=== PATIENT | male | born 1990 | race Caucasian/White ===

== ENCOUNTER 2018-02-25 20:57 | Emergency (ER) | payer OTHER ==
[2018-02-25] MEDS ORDERED: ONDANSETRON *ODT* 4 MG TABLET SL ONE (21:15)
[2018-02-25] MEDS ORDERED: morphine CARPU-JECT 4 MG/1 ML DISP.SYRIN IVPUSH ONE (21:15)
[2018-02-25] MEDS ORDERED: morphine SULFATE 4 MG/ML VIAL ONE (21:18)
[2018-02-25 21:19] VITALS: BP 140/100; PULSE 79; BMI 29.5
[2018-02-25] MEDS ORDERED: ONDANSETRON 4 MG/2 ML VIAL ONE (21:19)
--- NOTE | 2018-02-25 21:51 | PDOC ---
Attending Attestation - Resident Resident Name: Lisa Rivera - ED Attending Attestation I have performed the following: I have examined & evaluated the patient, The case was reviewed & discussed with the resident, I agree w/resident's findings & plan, Exceptions are as noted - HPI HPI: 02/25/18 21:50 27 M with no PMH presents to ED with R shoulder pain after falling. Pt states he tripped over a rock and fell forward onto his R arm. Pt denies headstrike/ LOC. Now complains of pain in R shoulder and difficulty ranging his RUE. Denies headache, denies neck pain, denies back pain, denies pain in LUE or BLE. - Physicial Exam PE: 02/25/18 21:51 "GENERAL: Awake, alert, and fully oriented, in no acute distress. HEAD: No signs of trauma EYES: PERRLA, EOMI, sclera anicteric, conjunctiva clear ENT: Auricles normal inspection, hearing grossly normal, nares patent, oropharynx clear without exudates. Moist mucosa NECK: Nontender, no stepoffs, Normal ROM, supple, no lymphadenopathy, JVD, or masses LUNGS: Breath sounds equal, clear to auscultation bilaterally. No wheezes, and no crackles HEART: Regular rate and rhythm, normal S1 and S2, no murmurs, rubs or gallops ABDOMEN: Soft, nontender, normoactive bowel sounds. No guarding, no rebound. No masses EXTREMITIES: + RUE with flattening of deltoid, ROM limited 2/2 pain, neurovascularly intact distally. NEUROLOGICAL: Cranial nerves II through XII intact. 5/5 strength and sensation in all extremities, Normal speech, normal gait, normal cerebellar function SKIN: Warm, Dry, normal turgor, no rashes or lesions noted. " - Medical Decision Making 02/25/18 21:51 27 M with R shoulder deformity after falling. Likely dislocation. No other injury. - XR R shoulder 02/25/18 22:14 XR shows anterior dislocation Shoulder reduced with external rotation and scapular manipulation Repeat XR shows successful reduction Pt placed in sling. Will DC with ortho f/u. Pt is well appearing, with normal vitals. Clinically stable for DC at this time. I discussed the physical exam findings, ancillary test results and final diagnoses with the patient. I answered all of the patient's questions. The patient was satisfied with the care received and felt comfortable with the discharge plan and treatment plan. The patient agrees to follow up with the primary care physician within 24-72 hours. Procedures - Joint Reduction Right Joint Reduction Site: right: Shoulder Pre-Procedure NV Exam: normal Conscious Sedation: No Procedure: Scapular Manipulation Post-Procedure NV Exam: normal Complications: No Post Joint Reduction Film: joint reduced Immobilized: Yes (Sling)
--- NOTE | 2018-02-25 22:17 | PDOC ---
History of Present Illness - General Chief Complaint: Injury Stated Complaint: SHOULDER INJURY Time Seen by Provider: 02/25/18 21:08 - History of Present Illness Initial Comments: 02/25/18 22:14 Alex Paul is an otherwise healthy 27yo man who presents following a mechanical fall while running today. Mr Paul reports that he tripped on the sidewalk and put his arms out in front of him when he fell. He landed with most of his weight on his right arm and has had severe pain and inability to move the arm since that time. He states that his arm is dislocated and requests that it is "popped back" into place. Mr Paul denies any LOC, head trauma, or injury to any other part of his body. Past History - Past Medical History Allergies/Adverse Reactions: Allergies Allergy/AdvReac Type Severity Reaction Status Date / Time No Known Allergies Allergy Verified 02/25/18 21:14 Home Medications: Ambulatory Orders NK [No Known Home Medication] 02/25/18 COPD: No - Suicide/Smoking/Psychosocial Hx Smoking History: Never smoked Review of Systems - Review of Systems Comments:: 02/25/18 22:16 General: No fevers, no chills, no weight or appetite change, no malaise HEENT: No changes in vision, no changes in hearing, no congestion, no sore throat CV: No chest pain, no palpitations, no LE edema Pulm: No SOB, no cough, no wheezing GI: No nausea or vomiting, no change in bowel habits, no melena : No frequency, no urgency, no dysuria Musc: See HPI Skin: No rash, no lesions, no erythema Endo: No excessive thirst, no heat/cold intolerance Heme: No unusual bruising or bleeding, no swollen glands Neuro: No syncope, no numbness/tingling, no focal weakness Vasc: No claudication Psych: No recent change in mood, no SI or HI *Physical Exam - Vital Signs Last Vital Signs Temp Pulse Resp BP Pulse Ox 79 18 140/100 02/25/18 20:57 02/25/18 20:57 02/25/18 20:57 - Physical Exam Comments: 02/25/18 22:16 General: Comfortable, no acute distress HEENT: PERRL, EOMI, MMM, voice normal, normal neck ROM, no LAD Cards: RRR, no murmur appreciated Pulm: Comfortable on room air, clear to auscultation bilaterally Abd: Soft, nontender, nondistended : No CVA tenderness Ext: Supporting RUE with left. Unable to move RUE secondary to pain. Sensation to light touch intact in distal right hand, palpable rt radial pulse, able to move r fingers normally. Vasc: Extremities WWP. Palpable radial and pedal pulses bilaterally Neuro: A&Ox3, CN grossly intact, normal speech, sensory grossly intact and symmetric Psych: Mood appropriate to situation Procedures - Joint Reduction Right Joint Reduction Site: right: Posterior Dislocation (Rt shoulder) Pre-Procedure NV Exam: normal Conscious Sedation: No Reduction Attempts: 1 Procedure: Other (Reduction of posterior R should dislocation) Post-Procedure NV Exam: normal Complications: No Post Joint Reduction Film: joint reduced Splint: Yes ED Treatment Course - RADIOLOGY Radiology Studies Ordered: Category Date Time Status SHOULDER-RIGHT [RAD] Stat Radiology 02/25/18 21:15 Taken - Medications Given in the ED: ED Medications Discontinued Medications Generic Name Dose Route Start Last Admin Trade Name Freq PRN Reason Stop Dose Admin Morphine Sulfate 4 mg 02/25/18 21:15 02/25/18 21:59 Morphine Injection - IVPUSH 02/25/18 21:16 Not Given ONCE ONE Ondansetron HCl 4 mg 02/25/18 21:15 02/25/18 21:59 Zofran Odt - SL 02/25/18 21:16 Not Given ONCE ONE Medical Decision Making - Medical Decision Making 02/25/18 22:19 Alex Paul is an otherwise healthy 27yo man who presented with a right posterior shoulder dislocation following a mechanical fall while running this evening. The dislocation is an isolated injury; there was no head trauma or LOC. He had an intact neurovascular exam and the dislocation was confirmed on xray. Joint reduction was completed by Dr Da Pham without complication. Post-reduction xrays were obtained to confirm placement. He will be discharged home with a sling for continued RUE support and will need to follow with orthopedic surgery. *DC/Admit/Observation/Transfer Diagnosis at time of Disposition: Shoulder dislocation Qualifiers: Encounter type: initial encounter Laterality: right Qualified Code(s): S43.004A - Unspecified dislocation of right shoulder joint, initial encounter - Discharge Dispostion Disposition: HOME Condition at time of disposition: Good Decision to Admit order: No - Referrals Referrals: Salvatore Hernandez MD [Staff Physician] - - Patient Instructions Printed Discharge Instructions: DI for Shoulder Dislocation Additional Instructions: Discharge instructions: - You were seen for a dislocated right shoulder - Your shoulder was put back into place in the ED - You should use ibuprofen (Advil, Motrin) for pain control. You may take 600- 800mg every 6-8 hours as needed for pain. Make sure you that you take ibuprofen with food. - Ice is recommended for pain and swelling. You may apply ice for 20 minutes every 2-3 hours. - You will need to follow up with orthopedic surgery - Please return to the ED if you have significantly increased pain, cannot move your arm, or numbness/tingling in your hand. - Post Discharge Activity Forms/Work/School Notes: Back to Work
== END 2018-02-25 22:53 | disposition home or self-care (01) ==
LOC: JER 20:57
PROC: 0RSJXZZ Reposition Right Shoulder Joint, External Approach (ICD-10-PCS; principal; 2018-02-25)
DX: S43.084A Other dislocation of right shoulder joint, initial encounter (principal); W18.09XA Striking against other object with subsequent fall, initial encounter; Y93.02 Activity, running; Y92.414 Local residential or business street as the place of occurrence of the external cause; Y99.8 Other external cause status
CPT/HCPCS: 73030-TC-RT-FY; 99281-25